=== PATIENT | female | born 2000 | race Native Hawaiian/Other Pacific Islander ===

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

== ENCOUNTER 2019-07-16 12:48 | Outpatient (CLI) | payer BC | END 2019-07-16 19:17 | disposition home or self-care (01) | LOC: NM 12:48 | DX: R10.11 Right upper quadrant pain (principal) | CPT/HCPCS: A9541 ==